=== PATIENT | female | born 1995 | race Caucasian/White ===

== ENCOUNTER 2018-03-03 01:12 | Emergency (ER) | payer OTHER ==
[2018-03-03] MEDS ORDERED: IBUPROFEN 600 MG TAB PO STA (01:43)
--- NOTE | 2018-03-03 01:47 | ED ---
ENT HPI - General Chief complaint: ENT Stated complaint: Sore throat Time Seen by Provider: 03/03/18 01:37 Source: patient, RN notes reviewed Mode of arrival: ambulatory Limitations: no limitations - History of Present Illness Initial comments: This is a 22-year-old female who presents to the emergency department with chief complaint of sore throat. Patient states she developed scratchiness in her throat yesterday and has developed progressive worsening of pain. She states that she is prone to tonsillitis. At this time, she also admits to runny nose and a nonproductive cough. She states that this evening she woke up and felt like she had difficulty breathing and thought that her tonsils were closing. Denies any fevers or chills, abdominal pain, nausea or vomiting, diarrhea or constipation. - Related Data Home Medications Medication Instructions Recorded Confirmed No Known Home Medications [No 03/03/18 03/03/18 Known Home Medications] Allergies Allergy/AdvReac Type Severity Reaction Status Date / Time Sulfa (Sulfonamide Allergy Itching Verified 03/03/18 01:19 Antibiotics) Review of Systems ROS Statement: Those systems with pertinent positive or pertinent negative responses have been documented in the HPI. ROS Other: All systems not noted in ROS Statement are negative. Past Medical History Past Medical History: Asthma History of Any Multi-Drug Resistant Organisms: None Reported Past Surgical History: Ear Surgery Past Psychological History: ADD/ADHD Smoking Status: Current every day smoker Past Alcohol Use History: Occasional Past Drug Use History: None Reported General Exam - General Exam Comments Initial Comments: General: Awake and alert, well-developed; in no apparent distress. Does not appear acutely ill. HEENT: Head atraumatic, normocephalic. Pupils are equal, round and reactive to light. Extraocular movements intact. Oropharynx moist with mild erythema. No tonsillar enlargement or exudates bilaterally. Neck: Supple. Normal ROM. No tender lymphadenopathy. Cardiovascular: Regular rate and rhythm. No murmurs, rubs or gallops. Chest symmetrical. Respiratory: Lungs clear to auscultation bilaterally. No wheezes, rales or rhonchi. Normal respiratory effort with no use of accessory muscles. Musculoskeletal: Normal ROM, no tenderness bilateral upper and lower extremities. Ambulating normally. Skin: [place], warm and dry without rashes or lesions. Neurological: Alert and oriented x3. CN II-XII grossly intact. Speech is fluent and answers are appropriate. No focal neuro deficits. Psychiatric: Normal mood and affect. No overt signs of depression or anxiety noted. Limitations: no limitations Course Vital Signs 03/03/18 01:15 Temperature 98.9 F Pulse Rate 91 Respiratory 17 Rate Blood Pressure 137/64 O2 Sat by Pulse 100 Oximetry Medical Decision Making - Medical Decision Making This is a 22-year-old female who presents to the emergency department with chief complaint of sore throat. Patient states that she is prone to tonsillitis and is worried that her tonsils are swollen. On presentation to the emergency department, patient's vital signs were stable and she was afebrile. On physical examination, oropharynx is mildly erythematous and and no tonsillar enlargement or exudates are noted. Rapid strep was negative. Patient also has been experiencing a nonproductive cough and runny nose. Denies any fevers or chills. Likely suffering from a viral upper respiratory infection. She will be discharged home at this time. She is in no acute distress. Recommended following up with her primary care provider. Return parameters were discussed. She is in agreement and voices understanding. All questions answered. - Lab Data Lab Results 03/03/18 Range/Units 01:37 Group A Strep Rapid Negative (Negative) Disposition Clinical Impression: Upper respiratory infection Disposition: HOME SELF-CARE Condition: Good Instructions: Upper Respiratory Infection (ED) Additional Instructions: Please follow up with primary care provider within 1-2 days. Return to emergency department if symptoms should worsen or any concerns arise. Is patient prescribed a controlled substance at d/c from ED?: No Referrals: Robel Clark DO [Primary Care Provider] - 1-2 days Time of Disposition: 02:44
[2018-03-03 03:02] VITALS: BP 110/59; PULSE 75; RESP 20; TEMP 98.1
== END 2018-03-03 03:04 | disposition home or self-care (01) ==
LOC: EC 01:12
DX: J06.9 Acute upper respiratory infection, unspecified (principal); F17.200 Nicotine dependence, unspecified, uncomplicated; Z88.2 Allergy status to sulfonamides
CPT/HCPCS: 87081; 87430; 99283

== ENCOUNTER → 2018-05-11 | Outpatient (CLI) | payer OTHER ==
[2018-05-11 15:18] LABS: Glucose 82 mg/dL (74-99)
--- NOTE | 2018-05-11 15:33 | US ---
EXAMINATION TYPE: Transabdominal DATE OF EXAM: 01/19/18 COMPARISON: NONE CLINICAL HISTORY: Confirm Dates Z36. EXAM PERFORMED: Transabdominal (TA) EXAM MEASUREMENTS: GESTATIONAL AGE / DATING Physician Established: Not yet established Dates by LMP: (11 weeks/1 days) EDC: 11/29/2018 Dates by First Scan: No previous this is first scan Dates by Current Scan for: (11 weeks/4 days) EDC: 11/26/2018 MATERNAL ANATOMY Uterus: 14.3 x 5.6 x 8.9 cm Right Ovary: 4.5 x 1.5 x 2.3 cm Left Ovary: 3.4 x 1.8 x 1.8 cm Post CDS / Adnexa: wnl Presence of free fluid: No Presence of corpus luteal cyst: No Presence of subchorionic bleed: Yes, 0.7 x 0.5 x 0.5 cm to the left of the gestational sac GESTATION / SURVEY CRL: 4.7 cm (11 weeks/4 days) Yolk Sac (normal less than 6mm): 0.5 cm Heart Rate: 168 bpm Rhythm: Normal IUP: Live IUP Nuchal Translucency 10-14wks (normal less than 3mm): 0.09 cm Date of LMP: 02/22/2018 Live IUP, measurements consistent with dates. Amnion and chorion have not yet entirely fused. IMPRESSION: Single live intrauterine with a calculated sonographic age of 11 weeks and 4 days and estim ated date of delivery of 11/26/2018, concordant with menstrual age. There is a very small 0.7 cm subcho rionic hemorrhage.
[2018-05-11 15:49] LABS: HCT 36.9 % (34.0-46.0); HGB 12.8 gm/dL (11.4-16.0); MCH 30.6 pg (25.0-35.0); MCHC 34.7 g/dL (31.0-37.0); MCV 88.2 fL (80.0-100.0); Mean Platelet Volume 7.9; Platelet Count 191 k/uL (150-450); RBC 4.18 m/uL (3.80-5.40); RDW 12.9 % (11.5-15.5); WBC 6.9 k/uL (3.8-10.6)
[2018-05-11 19:46] LABS: HIV AB P24 Non-Reactive (Non-Reactive); HIV P24 AG Non-Reactive (Non-Reactive)
[2018-05-12 05:35] LABS: Toxoplasma Antibody (IgG) <3.0 IU/mL (<7.2); Toxoplasma Antibody (IgM) <3.0 AU/mL (<8.0)
== END | disposition home or self-care (01) ==
LOC: RADUSWWP 14:10
PROVIDERS: ATTEND Obstetrics & Gynecology
DX: Z36.0 Encounter for antenatal screening for chromosomal anomalies (principal); O26.811 Pregnancy related exhaustion and fatigue, first trimester; O20.8 Other hemorrhage in early pregnancy; Z3A.11 11 weeks gestation of pregnancy
CPT/HCPCS: 36415; 76801; 76813; 82565; 82947; 85027; 86762; 86777; 86778; 86780; 86850; 86900; 86901; 87340; 87390

== ENCOUNTER 2018-08-02 07:13 | Observation (INO) | payer OTHER ==
[2018-08-02 08:06] LABS: Amorphous Sediment,Urine Occasional /hpf; Appearance,Urine Cloudy (Clear); Bacteria,Urine Occasional /hpf; Bilirubin,Urine Negative (Negative); Blood,Urine Moderate (Negative); Color,Urine Yellow; Glucose,Urine (UA) Negative (Negative); Ketones,Urine Negative (Negative); Leukocyte Esterase,Urine Negative (Negative); Mucus,Urine Rare /hpf; Nitrite,Urine Negative (Negative); PH, Urine 6.5 (5.0-8.0); Protein,Urine Trace (Negative); RBC,Urine >182 /hpf (0-5); Specific Gravity,Urine 1.015 (1.001-1.035); Squamous Epithelial Cell,Urine 11 /hpf (0-4); Urobilinogen,Urine <2.0 mg/dL (<2.0); WBC,Urine 8 /hpf (0-5)
--- NOTE | 2018-08-02 08:36 | US ---
EXAMINATION TYPE: US renals and bladder DATE OF EXAM: 08/02/2018 COMPARISON: NONE CLINICAL HISTORY: 23-year-old female rule out kidney stone.. Pt having left flank pain, approx. 23 we eks TECHNIQUE: Multiple sonographic images of the kidneys and bladder are obtained. FINDINGS: EXAM MEASUREMENTS: Right Kidney: 10.5 x 5.5 x 5.0 cm Left Kidney: 11.7 x 5.8 x 5.9 cm Plant Protection Superintendent notes:Pt scanned in upright position Right Kidney: Appeared wnl Left Kidney: There is mild pelvicaliectasis. Bladder: Unable to visualize, pt unable to lie down IMPRESSION: Mild pelvicaliectasis on the left. Bladder and ureteral jets could not be assessed as the patient was unable to lie down.
[2018-08-02] MEDS: BUTORPHANOL 1 MG/ML 1 ML VIAL IV PRN ×5 (08:58→18:38)
[2018-08-02] MEDS: ONDANSETRON 4 MG/2 ML VIAL IVP PRN ×2 (09:02→15:11)
[2018-08-02] MEDS: LACTATED RINGERS 1,000 ML IV SCH ×7 (09:04→21:51)
[2018-08-02 09:12] LABS: ALT 38 U/L (9-52); AST 30 U/L (14-36); Albumin 3.3 g/dL (3.5-5.0); Alkaline Phosphatase 63 U/L (38-126); Anion Gap 9 mmol/L; Blood Urea Nitrogen 10 mg/dL (7-17); Calcium 8.5 mg/dL (8.4-10.2); Carbon Dioxide 19 mmol/L (22-30); Chloride 109 mmol/L (98-107); Glucose 100 mg/dL (74-99); Potassium 3.7 mmol/L (3.5-5.1); Sodium 137 mmol/L (137-145); Total Bilirubin 0.3 mg/dL (0.2-1.3); Total Protein 6.1 g/dL (6.3-8.2)
[2018-08-02 09:41] LABS: Basophils % (A) 0 %; Eosinophils # (A) 0.3 k/uL (0-0.7); Eosinophils % (A) 3 %; HCT 34.8 % (34.0-46.0); HGB 12.1 gm/dL (11.4-16.0); Lymphocytes # (A) 1.3 k/uL (1.0-4.8); Lymphocytes % (A) 14 %; MCH 30.6 pg (25.0-35.0); MCHC 34.8 g/dL (31.0-37.0); MCV 88.1 fL (80.0-100.0); Mean Platelet Volume 7.8; Monocytes # (A) 0.5 k/uL (0-1.0); Monocytes % (A) 5 %; Neutrophils # (A) 7.2 k/uL (1.3-7.7); Neutrophils % (A) 76 %; Platelet Count 158 k/uL (150-450); RBC 3.95 m/uL (3.80-5.40); RDW 12.4 % (11.5-15.5); WBC 9.4 k/uL (3.8-10.6)
[2018-08-02 10:33] VITALS: BMI 35.5
--- NOTE | 2018-08-02 11:54 | US ---
EXAMINATION TYPE: US OB >= 14 wk fetus DATE OF EXAM: 08/02/2018 COMPARISON: 05/11/2018 CLINICAL HISTORY: 23-year-old female with Pain TECHNIQUE: Transabdominal (TA) GESTATIONAL AGE / DATING Physician Established: (23 weeks/0 days) EDC: 11/29/2018 Dates by Current Scan: (23 weeks/0 days) EDC: 11/29/2018 . 3 days more growth as compared to 05/11/2018. SURVEY IUP: Single PLACENTA: Anterior PREVIA: No Previa ABIMAEL: 18.7 cm Normal CERVICAL LENGTH (transabdominal: norm > 3.0cm): 4.0 cm BIOMETRY PRESENTATION: Breech BPD: 5.8 cm 23 weeks / 5 days HC: 21.0 cm 23 weeks / 0 days AC: 18.3 cm 23 weeks / 1 days FL: 4.1 cm 23 weeks / 2 days ESTIMATED WEIGHT IN GRAMS: 570.3 grams ESTIMATED WEIGHT IN LBS/OZ: 1 lbs. 4 oz. WEIGHT PERCENTAGE BASED ON ESTABLISHED DATES: 51.5% HC/AC: 1.2 Normal FL/AC: 22.3 Normal HEART RATE: 132 bpm RHYTHM: Normal Single live IUP measuring 23 weeks 0 days IMPRESSION: 1. Single live anterior with established gestational age of 23 weeks 0 days by LMP. Current ultrasound biometry is now exactly concordant with 3 days more growth than expected from 05/11/2018. 2. Complete survey generally performed between 18-20 weeks. Note that this study was not perfor med as a survey.
--- NOTE | 2018-08-02 13:16 | P.HPOB ---
History of Present Illness H&P Date: 08/02/18 Chief Complaint: Left flank pain This patient is a pleasant 23-year-old 1 para 0 female estimated date of confinement 11/29/2018 estimated gestational age 23-1/2 weeks who presented to labor and delivery this morning with complaints of sudden onset of left- sided flank pain that radiated to her groin. Patient's care has been uncomplicated to this point. She denies fever chills. She is having some nausea and vomiting. She denies any vaginal bleeding or leaking of fluid. She has had movement. Review of Systems Constitutional: Reports as per HPI Gastrointestinal: Reports nausea, Reports vomiting Genitourinary: Reports Menstruation: Reports amenorrhea Past Medical History Past Medical History: Asthma History of Any Multi-Drug Resistant Organisms: None Reported Past Surgical History: Ear Surgery Past Anesthesia/Blood Transfusion Reactions: No Reported Reaction Past Psychological History: ADD/ADHD Smoking Status: Former smoker Past Alcohol Use History: Occasional Past Drug Use History: None Reported - Past Family History Mother History Unknown: Yes Family Medical History: No Reported History Medications and Allergies Home Medications Medication Instructions Recorded Confirmed Type No Known Home Medications 03/03/18 08/02/18 History Allergies Allergy/AdvReac Type Severity Reaction Status Date / Time Sulfa (Sulfonamide Allergy Itching Verified 08/02/18 07:18 Antibiotics) Exam Vital Signs Temp Pulse Resp BP Pulse Ox 08/02/18 10:01 96.4 F L 73 16 133/79 100 08/02/18 09:49 69 16 129/64 100 08/02/18 08:10 97.8 F 69 18 129/64 99 Intake and Output 08/01/18 08/02/18 08/02/18 22:59 06:59 14:59 Other: Voiding Method Toilet Weight 85.275 kg - OBG Physical Exam Abdomen: bowel sounds normal, no diffuse tenderness, no bruit present, no guarding noted, no hepatomegaly, no splenomegaly, no mass Vulva: both: normal Vagina: normal moisture, no discharge Cervix: no lesion, no discharge Uterus: enlarged Results blood work shows she is A negative, rubella immune, RPR nonreactive, hepatitis B negative, HIV is nonreactive, ultrasounds shows normal anatomy. Result Diagrams: 08/02/18 08:37 08/02/18 08:37 Abnormal Lab Results - Last 24 Hours (Table) 08/02/18 08/02/18 Range/Units 07:50 08:37 Chloride 109 H (98-107) mmol/L Carbon Dioxide 19 L (22-30) mmol/L Creatinine 0.47 L (0.52-1.04) mg/dL Glucose 100 H (74-99) mg/dL Total Protein 6.1 L (6.3-8.2) g/dL Albumin 3.3 L (3.5-5.0) g/dL Urine Appearance Cloudy H (Clear) Urine Protein Trace H (Negative) Urine Blood Moderate H (Negative) Urine RBC >182 H (0-5) /hpf Urine WBC 8 H (0-5) /hpf Ur Squamous Epith Cells 11 H (0-4) /hpf Amorphous Sediment Occasional H (None) /hpf Urine Bacteria Occasional H (None) /hpf Urine Mucus Rare H (None) /hpf Assessment and Plan Assessment: This is a pleasant 23-year-old 1 para 0 female 23-1/2 weeks gestation with sudden onset of left-sided flank pain. Urinalysis shows hematuria without evidence of infection. Renal ultrasound shows some hydronephrosis on the left which is mild and no evidence of a kidney stone at this time. Kvng ultrasound was normal. CBC is normal. My impression this patient most likely has a renal calculi of the left side. There is no evidence of labor or placental abruption. Plan at this time is to admit this patient for IV hydration, observation, IV pain control and we will screen her urine. I discussed this plan in detail with the patient and her partner and she understands. (1) Acute flank pain Current Visit: Yes Status: Acute Code(s): R10.9 - UNSPECIFIED ABDOMINAL PAIN SNOMED Code(s): 057920125 (2) Second trimester Current Visit: Yes Status: Acute Code(s): Z34.92 - ENCNTR FOR SUPRVSN OF NORMAL PREG, UNSP, SECOND TRIMESTER SNOMED Code(s): 77040422
[2018-08-03 00:06] VITALS: RESP 16
[2018-08-03] MEDS: LACTATED RINGERS 1,000 ML IV SCH (04:16)
--- NOTE | 2018-08-03 06:08 | P.PN ---
Progress Note - Text Progress Note Date: 08/03/18 Hospital day #2. Patient is resting without complaints and her pain suddenly disappeared last evening. Vital signs are stable and she is afebrile. Patient' s having no further nausea and vomiting. I impression this is a kidney stones patient most likely past. Plan today is to advance to regular diet discharge home if still doing well.
--- NOTE | 2018-08-03 06:11 | P.DS ---
Providers Date of admission: 08/02/18 10:04 Expected date of discharge: 08/03/18 Attending physician: Tyree Singh Primary care physician: Stated None - Discharge Diagnosis(es) (1) Acute flank pain Current Visit: Yes Status: Acute (2) Second trimester Current Visit: Yes Status: Acute Hospital Course: Please see dictated H&P for intimate details of this patient's admission. Brief summary pleasant 23-year-old 1 para 0 female at 23-1/2 weeks gestation admitted to labor and delivery with sudden left sided flank pain. Patient's urinalysis was consistent with a kidney stone. Patient was admitted and given IV hydration and pain control. Patient did have a complete obstetrical ultrasound blood work all of which were normal. Overnight patient' s pain went away suddenly and by morning patient was feeling well felt be stable for discharge home follow up with me in 1 day. Patient Condition at Discharge: Good Plan - Discharge Summary New Discharge Prescriptions: No Action No Known Home Medications Discharge Medication List No Known Home Medications 03/03/18 [History] Follow up Appointment(s)/Referral(s): Darren Flowers MD [STAFF PHYSICIAN] - 08/04/18 Patient Instructions/Handouts: Kidney Stones (DC) Activity/Diet/Wound Care/Special Instructions: Please drink copious amount of fluids and take Tylenol as needed for pain. Discharge Disposition: HOME SELF-CARE
[2018-08-03 08:06] VITALS: BP 97/48; PULSE 86; TEMP 98.6
== END 2018-08-03 08:30 | disposition home or self-care (01) ==
LOC: FBPOP 07:13 → 4FBP 10:04
PROVIDERS: ADMIT Obstetrics & Gynecology; ATTEND Obstetrics & Gynecology
DX: O26.892 Other specified pregnancy related conditions, second trimester (principal); R10.9 Unspecified abdominal pain; Z3A.23 23 weeks gestation of pregnancy; Z87.891 Personal history of nicotine dependence; Z86.59 Personal history of other mental and behavioral disorders; Z87.09 Personal history of other diseases of the respiratory system; Z88.2 Allergy status to sulfonamides
CPT/HCPCS: 96376; 96361; 96374; 96375; 80053; 85025; 81001; 76805; 76770; G0378 ×2; G0463; J0595; J2405; 96360; 99213; 99214

== ENCOUNTER 2018-11-17 12:45 | Emergency (ER) | payer OTHER ==
[2018-11-17 12:57] VITALS: BP 106/68; PULSE 87; RESP 16; TEMP 98.2
--- NOTE | 2018-11-17 13:19 | ED ---
General Adult HPI - General Chief complaint: Wound/Laceration Stated complaint: Lt thumb lac Time Seen by Provider: 11/17/18 13:01 Source: patient, RN notes reviewed Mode of arrival: ambulatory Limitations: no limitations - History of Present Illness Initial comments: Patient is a 23-year-old female who presents the emergency department with complaint of left thumb laceration that happened about 30 minutes ago. She reports she was opening something with a knife when it slipped and cut her thumb. She reports she is up-to-date on her tetanus vaccination. Patient denies any recent fever, chills, shortness of breath, chest pain, back pain, abdominal pain, nausea or vomiting, numbness or tingling, headaches or visual changes, or any other complaints. - Related Data Home Medications Medication Instructions Recorded Confirmed No Known Home Medications 03/03/18 08/02/18 Allergies Allergy/AdvReac Type Severity Reaction Status Date / Time Sulfa (Sulfonamide Allergy Itching Verified 11/17/18 12:57 Antibiotics) Review of Systems ROS Statement: Those systems with pertinent positive or pertinent negative responses have been documented in the HPI. ROS Other: All systems not noted in ROS Statement are negative. Past Medical History Past Medical History: Asthma History of Any Multi-Drug Resistant Organisms: None Reported Past Surgical History: Ear Surgery Past Anesthesia/Blood Transfusion Reactions: No Reported Reaction Past Psychological History: ADD/ADHD Smoking Status: Former smoker Past Alcohol Use History: Occasional Past Drug Use History: None Reported - Past Family History Mother History Unknown: Yes Family Medical History: No Reported History General Exam Limitations: no limitations General appearance: alert, in no apparent distress Head exam: Present: atraumatic, normocephalic Eye exam: Present: normal appearance Respiratory exam: Present: normal lung sounds bilaterally. Absent: wheezes, rales, rhonchi Cardiovascular Exam: Present: regular rate, normal rhythm Extremities exam: Present: full ROM, normal capillary refill, other (Laceration to distal phalanx left thumb. Sensation intact. Able to maintain finger extension against resistance.) Neurological exam: Present: alert, oriented X3 Psychiatric exam: Present: normal affect, normal mood Course Vital Signs 11/17/18 12:55 Temperature 98.2 F Pulse Rate 87 Respiratory 16 Rate Blood Pressure 106/68 O2 Sat by Pulse 98 Oximetry Procedures - Laceration Laceration #1 Consent Obtained: verbal consent Indication: laceration Site: hand Size (cm): 2 Description: irregular Depth: simple, single layer Sedation/Analgesia: none Anesthetic Used: lidocaine 1%, without epi Anesthesia Technique: local infiltration Amount (mls): 2 Pre-repair: wound explored, irrigated extensively Type of Sutures: nylon Size of Sutures: 4-0 Number of Sutures: 4 Technique: simple, interrupted Patient Tolerated Procedure: well, no complications Medical Decision Making - Medical Decision Making Laceration repaired. Case discussed in detail with attending physician Dr. Lagunas. Disposition Clinical Impression: Laceration Disposition: HOME SELF-CARE Condition: Good Instructions (If sedation given, give patient instructions): Care For Your Stitches (ED) Additional Instructions: Follow-up with your PCP in 1-2 days. Return to the emergency department or follow-up with your PCP in 14 days for suture removal. Return to the emergency department if redness, swelling, drainage or fevers as these could indicate an infection. Is patient prescribed a controlled substance at d/c from ED?: No Referrals: Robel Clark DO [Primary Care Provider] - 1-2 days Time of Disposition: 14:25
[2018-11-17] MEDS ORDERED: LIDOCAINE 1% INJ 10MG/ML (20 ML MDV) SQ STA (13:20)
== END 2018-11-17 14:46 | disposition home or self-care (01) ==
LOC: EC 12:45
DX: S61.012A Laceration without foreign body of left thumb without damage to nail, initial encounter (principal); Z87.891 Personal history of nicotine dependence; Z88.2 Allergy status to sulfonamides; W26.0XXA Contact with knife, initial encounter; Y93.89 Activity, other specified
CPT/HCPCS: 99282; 12001; J2001

== ENCOUNTER 2018-11-25 05:33 | Inpatient (IN) | payer OTHER ==
[2018-11-18 15:43] VITALS: BMI 35.0
--- NOTE | 2018-11-24 06:48 | P.HPOB ---
History of Present Illness H&P Date: 11/24/18 Chief Complaint: macrosomia requesting section This patient is a pleasant 23-year-old 1 para 0 female estimated date of confinement 11/29/2018 estimated gestational age 39-3/7 weeks who presents to labor and delivery for primary section secondary to macrosomia. Patient's history is such that she has a family history of large babies and patient's and measuring large. Most recent ultrasound estimates weight at about 9-1/2-10 pounds. Patient I've discussed options for delivery and she is requested section at this time which I feel is appropriate. is otherwise been uncomplicated. Review of Systems Gastrointestinal: Reports heartburn Genitourinary: Reports Menstruation: Reports amenorrhea Past Medical History Past Medical History: Asthma Additional Past Medical History / Comment(s): STITCHES TO LEFT THUMB ON 11/17/18 History of Any Multi-Drug Resistant Organisms: None Reported Past Surgical History: Ear Surgery Additional Past Surgical History / Comment(s): TUBES IN EARS INFANT Past Anesthesia/Blood Transfusion Reactions: No Reported Reaction Past Psychological History: No Psychological Hx Reported Smoking Status: Former smoker Past Alcohol Use History: None Reported Past Drug Use History: None Reported - Past Family History Mother History Unknown: Yes Family Medical History: No Reported History Medications and Allergies Home Medications Medication Instructions Recorded Confirmed Type Folic Acid 1 mg PO DAILY 11/17/18 11/18/18 History Acetaminophen Tab [Tylenol Tab] 325 - 650 mg PO Q6H PRN 11/18/18 11/18/18 History Allergies Allergy/AdvReac Type Severity Reaction Status Date / Time Sulfa (Sulfonamide Allergy Itching Verified 11/18/18 15:39 Antibiotics) egg AdvReac Nausea Verified 11/18/18 15:39 Exam - OBG Physical Exam Abdomen: bowel sounds normal, no diffuse tenderness, no bruit present, no guarding noted, no hepatomegaly, no splenomegaly, no mass Vulva: both: normal Vagina: normal moisture, no discharge Cervix: no lesion (Cervix in the office was closed.), no discharge Uterus: enlarged (Fundal height measures large for dates.) Results blood work shows she is A-, rubella immune, RPR nonreactive, HIV nonreactive, hepatitis B negative, Glucola was normal, group B strep was negative, most recent ultrasound estimated weight at 9 lbs. 8 oz. Patient did receive RhoGAM at 28 weeks. Assessment and Plan Assessment: This is a pleasant 23-year-old 1 para 0 female 39-3/7 weeks gestation who presents to labor and delivery for primary section secondary to excessive macrosomia. Patient I have discussed the surgery and risks including risks of infection, bleeding, possible need bowel, bladder, vessels, and other organs. Also discussed risk of DVT and pulmonary embolism. All the patient's questions are answered and a written consent is obtained. Plan is primary low transverse section. (1) 39 weeks gestation of Status: Acute Code(s): Z3A.39 - 39 WEEKS GESTATION OF SNOMED Code( s): 63086914 (2) Excessive growth affecting management of mother Status: Acute Code(s): O36.60X0 - MATERNAL CARE FOR EXCESS GROWTH, UNSP TRIMESTER, UNSP SNOMED Code(s): 69738868 (3) Rh negative status during Status: Acute Code(s): O26.899 - OTH RELATED CONDITIONS, UNSPECIFIED TRIMESTER; Z67.91 - UNSPECIFIED BLOOD TYPE, RH NEGATIVE SNOMED Code(s): 129842949
[2018-11-25] MEDS ORDERED: LACTATED RINGERS 1,000 ML IV SCH (05:41)
[2018-11-25] MEDS ORDERED: CITRIC ACID-SODIUM CITRATE 15 ML CUP PO ONE (05:41)
[2018-11-25] MEDS ORDERED: LACTATED RINGERS 1,000 ML IV ONE (05:41)
[2018-11-25 06:17] LABS: Basophils % (A) 0 %; Eosinophils # (A) 0.1 k/uL (0-0.7); Eosinophils % (A) 1 %; HCT 33.9 % (34.0-46.0); HGB 11.3 gm/dL (11.4-16.0); Hypochromasia Slight; Lymphocytes # (A) 1.6 k/uL (1.0-4.8); Lymphocytes % (A) 22 %; MCH 26.1 pg (25.0-35.0); MCHC 33.3 g/dL (31.0-37.0); MCV 78.4 fL (80.0-100.0); Mean Platelet Volume 9.5; Monocytes # (A) 0.6 k/uL (0-1.0); Monocytes % (A) 8 %; Neutrophils # (A) 5.1 k/uL (1.3-7.7); Neutrophils % (A) 67 %; Platelet Count 194 k/uL (150-450); Poikilocytosis Slight; RBC 4.31 m/uL (3.80-5.40); RDW 13.7 % (11.5-15.5); WBC 7.6 k/uL (3.8-10.6)
[2018-11-25] MEDS ORDERED: ceFAZolin IN SWFI 2 GM/20 ML SYRINGE IVP ONE (07:15)
[2018-11-25] MEDS ORDERED: KETOROLAC 30 MG/ML 1 ML VIAL ONE (07:50)
[2018-11-25] MEDS ORDERED: OXYTOCIN 10 UNIT/ML 1 ML VIAL ONE (07:50)
[2018-11-25] MEDS ORDERED: NALBUPHINE 10 MG/ML (1 ML AMP) ONE (07:50)
[2018-11-25] MEDS ORDERED: MORPHINE SULFATE (PF) 0.3 MG/0.3 ML SYR ONE (07:50)
[2018-11-25] MEDS ORDERED: ONDANSETRON 4 MG/2 ML VIAL ONE (07:50)
[2018-11-25] MEDS ORDERED: DEXAMETHASONE SOD PHOS (MDV) 100 MG/10 ML VIAL ONE (07:50)
--- NOTE | 2018-11-25 08:50 | P.OP ---
Date of Procedure: 11/25/18 Preoperative Diagnosis: #1: 39-3/7 week . #2: macrosomia. Postoperative Diagnosis: Same Procedure(s) Performed: Primary low transverse section Anesthesia: spinal Surgeon: Darren Flowers Adobe Cq Developer #1: Mindi Locke Estimated Blood Loss (ml): 800 Pathology: none sent Condition: stable Disposition: floor Indications for Procedure: Please see dictated H&P for intimate details of this patient's admission. Brief summary this is a pleasant 23-year-old 1 para 0 female 39-3/7 weeks who is admitted to labor and delivery for elective section secondary to suspected macrosomia. Patient I have discussed the surgery and risks including risks of infection, bleeding, possible injury bowel, bladder , vessels, and other organs. Patient also understands risk of DVT and pulmonary embolism. All the patient's questions are answered and a written consent is obtained. Operative Findings: This is a vigorous viable male infant Apgars 9 and 9 delivery time is 0812 hours. Infant was 9 lbs. 10 oz. and had a nuchal cord 1. Description of Procedure: This patient is taken to the operating room where she sat up and spinal anesthetic is administered without incident. She had a had a Lamas catheter placed to straight drain. With adequate level of anesthesia she has abdominal prep and drape. Scalpels and taken Pfannenstiel skin incision is then made. A second scalpel is taken down the fascia and the fascia scored with a knife. Fascial incision extended bilaterally using the Monsivais scissors. Fascia is then dissected sharply off the rectus muscles. Rectus muscles are and the peritoneum identified and entered sharply. Peritoneal incision extended superior and inferior without difficulty. Bladder blade is then placed. Bladder peritoneum was then taken down sharply with the Metzenbaum scissors. Scalpels and taken a low transverse uterine incision is made. Using a hemostat I into the uterine cavity bluntly. Uterine incision is extended bluntly there is loss of a large amount of clear fluid. The infant's head is then guided through the incision with fundal pressure delivered. Mouth and nares are bulb suctioned. There is a nuchal cord 1 which is reduced. Then delivery anterior posterior rest this infant's body. This is a vigorous viable male infant Apgars are 9 and 9 delivery time was 0812 hours. After delivery of the infant the umbilical cord is doubly clamped and cut appears to be trivascular. The uterus is then externalized and uterine incision demarcated with Moreno clamps. Uterine incision then closed using 0 Vicryl running locked fashion 2 layers. Excellent hemostasis is noted. Bladder peritoneum was then reapproximated using a 3-0 Vicryl. Excess fluid is removed from the abdomen and pelvis. Uterus tubes and ovaries appear normal for term gestation. Uterus placed back into the abdomen. The parietal peritoneum was identified and closed using 0 Vicryl running fashion. The rectus muscles are reapproximated in 0 Vicryl interrupted fashion. The fascia is then closed using 0 PDS in a running fashion. Fascial incision is intact and hemostatic. Subcutaneous tissues and closed using a 3-0 Vicryl. Skin is and closed using annie. All counts are correct 3. There are no complications. Infant and mother stable in birthing room.
[2018-11-25] MEDS ORDERED: KETOROLAC 30 MG/ML 1 ML VIAL IVP PRN (08:51)
[2018-11-25] MEDS ORDERED: METOCLOPRAMIDE 5 MG/ML 2 ML VIAL IVP PRN (08:51)
[2018-11-25] MEDS ORDERED: SIMETHICONE 80 MG CHEWABLE PO PRN (08:51)
[2018-11-25] MEDS ORDERED: ZOLPIDEM 5 MG TAB PO PRN (08:51)
[2018-11-25] MEDS ORDERED: ACETAMINOPHEN TAB 325 MG TAB PO PRN (08:51)
[2018-11-25] MEDS ORDERED: LANOLIN CREAM 5 GM TUBE TOPICAL PRN (08:51)
[2018-11-25] MEDS ORDERED: Rhogam IMMUNE GLOBULIN 1,500 UNIT/1 ML IM ONE (08:51)
[2018-11-25] MEDS ORDERED: NALOXONE 0.4 MG/ML 1 ML VIAL IV PRN (08:51)
[2018-11-25] MEDS ORDERED: diphenhydrAMINE 50 MG/ML 1 ML VIAL IVP PRN (08:51)
[2018-11-25] MEDS ORDERED: OXYTOCIN 20 UNITS/1000 ML NS 1,000 ML IV SCH (08:51)
[2018-11-25] MEDS ORDERED: ONDANSETRON 4 MG/2 ML VIAL IVP PRN (08:51)
[2018-11-25] MEDS ORDERED: diphenhydrAMINE 25 MG CAP PO PRN (08:51)
[2018-11-25 10:57] VITALS: RESP 16
[2018-11-25] MEDS: LACTATED RINGERS 1,000 ML IV SCH ×3 (12:29→22:24)
[2018-11-25] MEDS ORDERED: DIPH,PERTUS(ACELL)TETVAC-LF 0.5 ML VIAL IM ONE (14:28)
[2018-11-25] MEDS: SENNOSIDES-DOCUSATE SODIUM 1 EACH TAB PO SCH (21:25)
[2018-11-26] MEDS: IBUPROFEN 600 MG TAB PO PRN ×4 (00:58→21:09)
--- NOTE | 2018-11-26 06:54 | P.PNOBGPC ---
Subjective - Subjective Patient reports: Reports appetite normal, Reports voiding normally, Reports pain well controlled, Reports ambulating normally : doing well Objective - Vital Signs Latest vital signs: Vital Signs Temp Pulse Resp BP Pulse Ox 11/26/18 04:00 97.8 F 67 16 104/71 100 11/26/18 00:00 97.6 F 66 16 100/49 99 11/25/18 20:00 98.4 F 87 16 107/69 100 11/25/18 15:49 75 106/63 11/25/18 15:42 98.2 F 16 11/25/18 12:00 97.2 F L 71 16 109/55 97 11/25/18 10:40 96.8 F L 71 16 112/57 97 11/25/18 10:14 97.1 F L 84 17 106/56 98 11/25/18 10:12 69 18 122/65 97 11/25/18 09:25 75 18 114/59 97 11/25/18 09:10 96.6 F L 80 18 112/57 97 11/25/18 08:55 77 18 113/59 96 11/25/18 08:40 97.0 F L 81 18 113/57 97 Intake and Output 11/25/18 11/25/18 11/26/18 14:59 22:59 06:59 Intake Total 331 800 Output Total 650 700 800 Balance -319 100 -800 Intake: Intake, IV Titration 61 800 Amount Lactated Ringers 1,000 ml 61 800 @ 125 mls/hr IV .Q8H [facility] Rx#:[id number] Oral 270 Output: Urine 650 700 800 Other: Voiding Method Indwelling Catheter # Voids 1 1 - Exam Lungs: bilateral: normal Chest: Normal S1, Normal S2 Extremities: Present: normal Abdomen: Present: normal appearance, soft. Absent: distention, tenderness Incision: Present: normal, dry, intact Uterus: Present: normal, firm Assessment and Plan Assessment: Post operative day #1. Patient is resting without complaints. Vital signs are stable and she is afebrile. CBC is pending. She is ambulating and urinating without difficulty and tolerating regular diet. Incision is intact and dry. Plan today is to check a CBC, encourage more ambulation, allow the patient to shower, and continue routine postoperative care. (1) 39 weeks gestation of Current Visit: No Status: Acute Code(s): Z3A.39 - 39 WEEKS GESTATION OF SNOMED Code(s): 06855150 (2) Excessive growth affecting management of mother Current Visit: No Status: Acute Code(s): O36.60X0 - MATERNAL CARE FOR EXCESS GROWTH, UNSP TRIMESTER, UNSP SNOMED Code(s): 49057160 (3) Rh negative status during Current Visit: No Status: Acute Code(s): O26.899 - OTH RELATED CONDITIONS, UNSPECIFIED TRIMESTER; Z67.91 - UNSPECIFIED BLOOD TYPE, RH NEGATIVE SNOMED Code(s): 540924985
[2018-11-26 07:27] LABS: Basophils % (A) 0 %; Eosinophils # (A) 0.1 k/uL (0-0.7); Eosinophils % (A) 1 %; HCT 28.4 % (34.0-46.0); Hypochromasia Moderate; Lymphocytes # (A) 1.8 k/uL (1.0-4.8); Lymphocytes % (A) 21 %; MCH 26.2 pg (25.0-35.0); MCHC 33.1 g/dL (31.0-37.0); MCV 79.2 fL (80.0-100.0); Mean Platelet Volume 9.1; Monocytes # (A) 0.7 k/uL (0-1.0); Monocytes % (A) 8 %; Neutrophils # (A) 5.8 k/uL (1.3-7.7); Neutrophils % (A) 68 %; Platelet Count 157 k/uL (150-450); RBC 3.58 m/uL (3.80-5.40); RDW 13.7 % (11.5-15.5); WBC 8.5 k/uL (3.8-10.6)
[2018-11-26 07:29] LABS: HGB 9.4 gm/dL (11.4-16.0)
[2018-11-26] MEDS: SENNOSIDES-DOCUSATE SODIUM 1 EACH TAB PO SCH ×2 (08:29→22:32)
[2018-11-26] MEDS: HYDROcodone/APAP 5-325MG 1 EACH TAB PO PRN (15:36)
--- NOTE | 2018-11-26 16:57 | P.PN ---
Progress Note - Text Progress Note Date: 11/26/18 23 yo female s/p c section with duramorph spinal. No motor/sensory deficits, ambulating. mild pruritis. doing well.
[2018-11-27] MEDS: SENNOSIDES-DOCUSATE SODIUM 1 EACH TAB PO SCH (07:20)
[2018-11-27] MEDS: HYDROcodone/APAP 5-325MG 1 EACH TAB PO PRN ×2 (07:21→13:37)
[2018-11-27] MEDS: IBUPROFEN 600 MG TAB PO PRN (10:37)
--- NOTE | 2018-11-27 11:27 | P.DS ---
Providers Date of admission: 11/25/18 05:33 Expected date of discharge: 11/27/18 Attending physician: Darren Flowers Primary care physician: Robel Clark - Discharge Diagnosis(es) (1) Status post primary low transverse section Current Visit: Yes Status: Acute Hospital Course: Pt presented for primary low transverse . She underwent this procedure without complication. SHe will be discharged home PPD #2 in stable condition to follow up with DR Flowers in 1 week. Plan - Discharge Summary Discharge Rx Participant: Yes New Discharge Prescriptions: New HYDROcodone/APAP 5-325MG [Ro[place] 5-325] 2 each PO Q4HR PRN #36 tab PRN Reason: Moderate Pain Ibuprofen [Motrin] 600 mg PO Q6HR PRN #40 tab PRN Reason: Mild Pain Or Fever >= 100.5 No Action Folic Acid 1 mg PO DAILY Acetaminophen Tab [Tylenol Tab] 325 - 650 mg PO Q6H PRN PRN Reason: Pain Discharge Medication List Folic Acid 1 mg PO DAILY 11/17/18 [History] Acetaminophen Tab [Tylenol Tab] 325 - 650 mg PO Q6H PRN 11/18/18 [History] HYDROcodone/APAP 5-325MG [Roosevelt 5-325] 2 each PO Q4HR PRN #36 tab 11/26/18 [Rx] Ibuprofen [Motrin] 600 mg PO Q6HR PRN #40 tab 11/26/18 [Rx] Follow up Appointment(s)/Referral(s): Darren Flowers MD [STAFF PHYSICIAN] - 1 Week (Please see me in 6 weeks for check as well.) Patient Instructions/Handouts: (DC) Activity/Diet/Wound Care/Special Instructions: No heavy lifting or strenuous activities for 6 weeks. No intercourse or anything per vagina for 6 weeks. Please call if any fever, chills, excessive vaginal bleeding, and/or abdominal pain. Discharge Disposition: HOME SELF-CARE
[2018-11-27 12:03] VITALS: BP 116/62; PULSE 81; TEMP 97.5
== END 2018-11-27 16:30 | disposition home or self-care (01) | DRG 788 ==
LOC: 4FBP 05:33
PROVIDERS: ADMIT Obstetrics & Gynecology; ATTEND Obstetrics & Gynecology
PROC: 10D00Z1 Extraction of Products of Conception, Low, Open Approach (ICD-10-PCS; principal; 2018-11-25 08:00)
DX: O36.63X0 Maternal care for excessive fetal growth, third trimester, not applicable or unspecified (principal); O69.81X0 Labor and delivery complicated by cord around neck, without compression, not applicable or unspecified; O26.893 Other specified pregnancy related conditions, third trimester; O99.62 Diseases of the digestive system complicating childbirth; O99.89 Other specified diseases and conditions complicating pregnancy, childbirth and the puerperium; M40.50 Lordosis, unspecified, site unspecified; R12 Heartburn; Z37.0 Single live birth; Z3A.39 39 weeks gestation of pregnancy; Z67.91 Unspecified blood type, Rh negative; Z87.891 Personal history of nicotine dependence; Z87.09 Personal history of other diseases of the respiratory system; Z88.2 Allergy status to sulfonamides; Z91.012 Allergy to eggs
CPT/HCPCS: 85025; 85461; 86850; 86900; 86901; 90715

== ENCOUNTER → 2020-06-04 | Outpatient (CLI) | payer OTHER ==
--- NOTE | 2020-06-04 22:29 | US ---
EXAMINATION TYPE: Ultrasound OB <= 14 week fetus DATE OF EXAM: 06/04/2020 3:07 PM COMPARISON: NONE CLINICAL HISTORY: 25-year-old female Z36 confirm dates. early ob, unknown dates EXAM PERFORMED: OBTA FINDINGS: EXAM MEASUREMENTS: GESTATIONAL AGE / DATING Physician Established: Not yet established Dates by LMP: (11 weeks/1 days) EDC: 12/23/2020 Dates by First Scan: No previous, this is first scan Dates by Current Scan for: (11 weeks/1 days) EDC: 12/23/2020 MATERNAL ANATOMY Uterus: 17.8 x 9.1 x 7.5cm Right Ovary: 2.8 x 2.5 x 2.8cm Left Ovary: not seen Post CDS / Adnexa: wnl Presence of free fluid: no Presence of corpus luteal cyst: not seen Presence of subchorionic bleed: no GESTATION / SURVEY CRL: 4.3 (11 weeks/1 days) MSD: wnl Yolk Sac (normal less than 6mm): not seen Heart Rate: 165 bpm Rhythm: Normal IUP: Viable IUP Date of LMP: 03/18/2020 IMPRESSION: 1. Single live intrauterine with estimated gestational age of 11 weeks 1 day by LMP. Curren t ultrasound biometry is exactly concordant. 2. The left ovary could not be visualized. 3. Complete survey recommended at 18-20 weeks.
== END | disposition home or self-care (01) ==
LOC: RADUSWWP 14:47
PROVIDERS: ATTEND Obstetrics & Gynecology
DX: Z36.9 Encounter for antenatal screening, unspecified (principal); Z3A.11 11 weeks gestation of pregnancy
CPT/HCPCS: 76801

== ENCOUNTER 2020-12-18 05:30 | Inpatient (IN) | payer OTHER ==
[2020-12-14 10:36] VITALS: BMI 45.3
--- NOTE | 2020-12-17 07:22 | P.HPOB ---
History of Present Illness H&P Date: 12/17/20 Chief Complaint: Repeat section This patient is a pleasant 25-year-old 2 para 1 female estimated date of confinement 12/23/2020 estimated gestational age 39-2/7 weeks who presents to labor and delivery for elective repeat section. Patient's has been uncomplicated with the exception of known macrosomia. Patient had a previous section for similar reasons as requested repeat at this time. Review of Systems Genitourinary: Reports Menstruation: Reports amenorrhea Past Medical History Past Medical History: Asthma Additional Past Medical History / Comment(s): STITCHES TO LEFT THUMB ON 11/17/18; kidney stones History of Any Multi-Drug Resistant Organisms: None Reported Past Surgical History: Section, Ear Surgery Additional Past Surgical History / Comment(s): TUBES IN EARS INFANT Past Anesthesia/Blood Transfusion Reactions: No Reported Reaction Past Psychological History: No Psychological Hx Reported Smoking Status: Former smoker Past Alcohol Use History: None Reported Past Drug Use History: None Reported - Past Family History Mother History Unknown: Yes Family Medical History: No Reported History Medications and Allergies Home Medications Medication Instructions Recorded Confirmed Type Inhaler 2 puff INHALATION DIRECTED PRN 12/14/20 History Multivitamins, Thera [Multivitamin 1 tab PO DAILY 12/14/20 12/14/20 History (formulary)] Allergies Allergy/AdvReac Type Severity Reaction Status Date / Time Sulfa (Sulfonamide Allergy Itching Verified 12/14/20 10:33 Antibiotics) Exam - OBG Physical Exam Abdomen: bowel sounds normal, no diffuse tenderness, no bruit present, no guarding noted, no hepatomegaly, no splenomegaly, no mass Vulva: both: normal Vagina: normal moisture, no discharge Cervix: no lesion, no discharge Uterus: enlarged (Fundal height is 45 cm) Results blood work shows she is A-, rubella immune, RPR nonreactive, hepatitis B negative, HIV is nonreactive, she received RhoGAM on October 01, group B strep was positive, Glucola was normal, most recent ultrasound showed the baby to be greater than 90th percentile. Assessment and Plan Assessment: This is a pleasant 25-year-old 2 para 1 female 39-2/7 weeks gestation admitted to labor and delivery for elective repeat section. Patient is known macrosomia. Plan is repeat low transverse section. I discussed the surgery and risks with the patient including risks of infection, bleeding, possible injury bowel, bladder, vessels, and/or other organs. All the patient's questions were answered and a written consent is obtained. (1) 39 weeks gestation of Status: Acute Code(s): Z3A.39 - 39 WEEKS GESTATION OF SNOMED Code(s): 28504028 (2) macrosomia Status: Acute Code(s): O36.60X0 - MATERNAL CARE FOR EXCESS GROWTH, UNSP TRIMESTER, UNSP SNOMED Code(s): 14331088 (3) Rh negative status during Status: Acute Code(s): O26.899 - OTH RELATED CONDITIONS, UNSPECIFIED TRIMESTER; Z67.91 - UNSPECIFIED BLOOD TYPE, RH NEGATIVE SNOMED Code(s): 869254221 (4) Previous delivery affecting Status: Acute Code(s): O34.219 - MATERNAL CARE FOR UNSP TYPE SCAR FROM PREVIOUS DEL SNOMED Code(s): 696368036
[2020-12-18] MEDS ORDERED: CITRIC ACID-SODIUM CITRATE 15 ML CUP PO ONE (05:48)
[2020-12-18] MEDS ORDERED: LACTATED RINGERS 1,000 ML IV ONE (05:48)
[2020-12-18] MEDS ORDERED: LACTATED RINGERS 1,000 ML IV SCH (05:48)
[2020-12-18 06:14] LABS: Basophils % (A) 0 %; Eosinophils # (A) 0.1 k/uL (0-0.7); Eosinophils % (A) 1 %; HCT 30.7 % (34.0-46.0); HGB 9.7 gm/dL (11.4-16.0); Hypochromasia Slight; Lymphocytes # (A) 2.1 k/uL (1.0-4.8); Lymphocytes % (A) 21 %; MCH 23.4 pg (25.0-35.0); MCHC 31.8 g/dL (31.0-37.0); MCV 73.6 fL (80.0-100.0); Mean Platelet Volume 7.3; Microcytosis Slight; Monocytes # (A) 0.7 k/uL (0-1.0); Monocytes % (A) 7 %; Neutrophils # (A) 6.8 k/uL (1.3-7.7); Neutrophils % (A) 69 %; Platelet Count 183 k/uL (150-450); Poikilocytosis Slight; RBC 4.17 m/uL (3.80-5.40); RDW 15.6 % (11.5-15.5)
[2020-12-18] MEDS ORDERED: MORPHINE SULFATE (PF) 0.3 MG/0.3 ML SYR ONE (07:51)
[2020-12-18] MEDS ORDERED: KETOROLAC 15 MG/ML 1 ML VIAL ONE (07:51)
[2020-12-18] MEDS ORDERED: ONDANSETRON 4 MG/2 ML VIAL ONE (07:51)
[2020-12-18] MEDS ORDERED: OXYTOCIN 10 UNIT/ML 1 ML VIAL ONE (07:51)
[2020-12-18] MEDS ORDERED: PHENYLEPHRINE-0.9% NACL SYG 1,000 MCG/10 ML SYRINGE ONE (07:51)
[2020-12-18] MEDS ORDERED: METOCLOPRAMIDE 5 MG/ML 2 ML VIAL IVP PRN (08:38)
[2020-12-18] MEDS ORDERED: NALOXONE 0.4 MG/ML 1 ML VIAL IV PRN (08:38)
[2020-12-18] MEDS ORDERED: ONDANSETRON 4 MG/2 ML VIAL IVP PRN (08:38)
[2020-12-18] MEDS ORDERED: diphenhydrAMINE 25 MG CAP PO PRN (08:38)
[2020-12-18] MEDS ORDERED: ZOLPIDEM 5 MG TAB PO PRN (08:38)
[2020-12-18] MEDS ORDERED: LANOLIN CREAM 5 GM TUBE TOPICAL PRN (08:38)
[2020-12-18] MEDS ORDERED: SIMETHICONE 80 MG CHEWABLE PO PRN (08:38)
[2020-12-18] MEDS ORDERED: diphenhydrAMINE 50 MG/ML 1 ML VIAL IVP PRN (08:38)
[2020-12-18] MEDS ORDERED: OXYTOCIN 30 UNITS/500 ML NS 30 UNIT in SALINE 1 500ML.BAG IV SCH (08:38)
[2020-12-18] MEDS ORDERED: ACETAMINOPHEN TAB 325 MG TAB PO PRN (08:38)
[2020-12-18] MEDS ORDERED: Rhogam IMMUNE GLOBULIN 1,500 UNIT/1 ML IM ONE (08:38)
--- NOTE | 2020-12-18 08:39 | P.OP ---
Date of Procedure: 12/18/20 Preoperative Diagnosis: #1: 39-2/7 week intrauterine . #2: Previous section desires repeat. #3: macrosomia Postoperative Diagnosis: Same Procedure(s) Performed: Repeat low transverse section Anesthesia: spinal Surgeon: Darren Flowers Wig Sales Consultant #1: Mindi Locke Estimated Blood Loss (ml): 600 Pathology: none sent Condition: stable Disposition: floor Indications for Procedure: Please see dictated H&P for intimate details of this patient's admission. Brief summary this is a pleasant 25-year-old 2 para 1 female 39-2/7 weeks gestation admitted to labor and delivery for elective repeat section. Patient understands this surgery and risks including risks of infection, bleeding, possible injury bowel, bladder, vessels, and/or other organs. She also understands risk of DVT and pulmonary embolism. All the patient's questions are answered written consent is obtained. Operative Findings: This is a vigorous viable male Apgars 9 and 9 delivery time is 0807 hrs. had a nuchal cord 1 and grossly appeared normal. Description of Procedure: This patient has a Lamas catheter placed to straight drain. She is subsequently taken to the operating room where she sat up and spinal anesthetic is administered without incident. With an adequate level of anesthesia, she has abdominal prep and drape. Scalpel is then taken and a Pfannenstiel incision is incised. A second scalpel is taken down the fascia and it is scored with the scalpel. Fascial incision extended bilaterally using the Monsivais scissors. Fascia is then dissected off the rectus muscles sharply. Rectus muscles are the peritoneum identified and sharply. Peritoneal incision extended superior and inferior without difficulty. Bladder blade is then placed. Bladder peritoneum was gently dissected off the lower uterine segment. Scalpels and taken a low transverse uterine incision is made. Using a hemostat I into the uterine cavity bluntly and there is loss of clear fluid. Incision is then extended bluntly and the infant's head is pushed through the incision with fundal pressure. Mouth and nares are bulb suctioned. There is a nuchal cord 1 which is easily reduced. Gentle fundal pressure we then deliver the rest of this infant's body. This is a vigorous viable male infant Apgars 9 and 9 delivery time 0807 hrs. After delivery of the the umbilical cord is doubly clamped and cut appears to be trivascular. Placenta is then manually extracted intact. Uterus is then externalized uterine incision demarcated with Moreno clamps. Uterine incision is then closed using 0 Vicryl running locked fashion 2 layers. Excellent hemostasis is noted. Excess fluid is removed from the abdomen and pelvis. Uterus, tubes, and ovaries appear normal for term gestation. Uterus placed back into the abdomen. Parietal peritoneum was then identified and closed using 0 Vicryl running fashion. Rectus muscles reapproximated in 0 Vicryl interrupted fashion. Fascial incision then closed using 0 PDS. Fascial incision is intact and hemostatic. Subcutaneous tissues and closed using a 3-0 Vicryl. Skin is and closed using annie. All counts are correct 3. There are no complications. Infant and mother are taken to the birthing suite in satisfactory condition.
[2020-12-18] MEDS: LACTATED RINGERS 1,000 ML IV SCH ×2 (08:52→14:19)
[2020-12-18] MEDS: IRON AG/C/B12/CA/SUC.ACID/STOM 1 EACH TAB PO SCH (09:54)
[2020-12-18] MEDS: SENNOSIDES-DOCUSATE SODIUM 1 EACH TAB PO SCH ×2 (09:54→19:54)
[2020-12-18] MEDS: KETOROLAC 15 MG/ML 1 ML VIAL IVP PRN (18:41)
[2020-12-19] MEDS: LACTATED RINGERS 1,000 ML IV SCH ×2 (02:43→11:58)
[2020-12-19] MEDS: KETOROLAC 15 MG/ML 1 ML VIAL IVP PRN ×2 (03:22→08:39)
[2020-12-19 06:19] LABS: Basophils % (A) 0 %; Eosinophils # (A) 0.1 k/uL (0-0.7); Eosinophils % (A) 1 %; HCT 28.2 % (34.0-46.0); HGB 8.8 gm/dL (11.4-16.0); Hypochromasia Marked; Lymphocytes # (A) 1.8 k/uL (1.0-4.8); Lymphocytes % (A) 17 %; MCH 23.4 pg (25.0-35.0); MCHC 31.3 g/dL (31.0-37.0); MCV 74.7 fL (80.0-100.0); Mean Platelet Volume 9.6; Microcytosis Slight; Monocytes # (A) 0.9 k/uL (0-1.0); Monocytes % (A) 8 %; Neutrophils # (A) 7.8 k/uL (1.3-7.7); Neutrophils % (A) 72 %; Platelet Count 195 k/uL (150-450); Poikilocytosis Slight; RBC 3.78 m/uL (3.80-5.40); RDW 15.5 % (11.5-15.5); WBC 10.8 k/uL (3.8-10.6)
--- NOTE | 2020-12-19 06:39 | P.PNOBGPC ---
Subjective - Subjective Patient reports: Reports appetite normal, Reports voiding normally, Reports pain well controlled, Reports ambulating normally : doing well Objective - Vital Signs Latest vital signs: Vital Signs Temp Pulse Resp BP Pulse Ox 12/19/20 04:00 98.3 F 67 16 110/67 96 12/19/20 00:00 98.2 F 66 16 102/63 96 12/18/20 20:00 98.4 F 72 16 92/50 96 12/18/20 16:00 98 F 88 15 101/61 98 12/18/20 12:00 98 F 84 15 112/63 97 12/18/20 10:39 98 F 82 15 108/60 99 12/18/20 10:09 85 15 107/56 99 12/18/20 09:39 97 F L 86 15 109/56 98 12/18/20 09:24 86 15 99/63 99 12/18/20 09:09 75 15 101/57 97 12/18/20 08:54 99 15 111/55 98 12/18/20 08:39 97.2 F L 84 15 104/61 98 Intake and Output 12/18/20 12/18/20 12/19/20 14:59 22:59 06:59 Intake Total 700 Output Total 750 450 200 Balance -50 -450 -200 Intake: IV 700 Output: Urine 150 450 200 Uretheral (Lamas) 400 Estimated Blood Loss 600 Other: # Voids 0 1 1 - Exam Lungs: bilateral: normal Chest: Normal S1, Normal S2 Extremities: Present: normal Abdomen: Present: normal appearance, soft. Absent: distention, tenderness Incision: Present: normal, dry, intact Uterus: Present: normal, firm - Labs Labs: Abnormal Lab Results - Last 24 Hours (Table) 12/19/20 Range/Units 05:59 WBC 10.8 H (3.8-10.6) k/uL RBC 3.78 L (3.80-5.40) m/uL Hgb 8.8 L (11.4-16.0) gm/dL Hct 28.2 L (34.0-46.0) % MCV 74.7 L (80.0-100.0) fL MCH 23.4 L (25.0-35.0) pg Neutrophils # 7.8 H (1.3-7.7) k/uL Assessment and Plan Assessment: Postoperative day #1. Patient is resting without complaints. Vital signs are stable she is afebrile. Incision is intact and dry. Uterus is firm nontender. Patient's hemoglobin today is 8.8 which is appropriate for a preoperative of 9.7. Patient is urinating without difficulty. Plan today is to continue regular diet, encourage ambulation, allow the patient to shower. Continue routine postoperative care. (1) 39 weeks gestation of Current Visit: No Status: Acute Code(s): Z3A.39 - 39 WEEKS GESTATION OF SNOMED Code(s): 88936339 (2) macrosomia Current Visit: No Status: Acute Code(s): O36.60X0 - MATERNAL CARE FOR EXCESS GROWTH, UNSP TRIMESTER, UNSP SNOMED Code(s): 43636345 (3) Rh negative status during Current Visit: No Status: Acute Code(s): O26.899 - OTH RELATED CONDITIONS, UNSPECIFIED TRIMESTER; Z67.91 - UNSPECIFIED BLOOD TYPE, RH NEGATIVE SNOMED Code(s): 006453270 (4) Previous delivery affecting Current Visit: No Status: Acute Code(s): O34.219 - MATERNAL CARE FOR UNSP TYPE SCAR FROM PREVIOUS DEL SNOMED Code(s): 343753646
--- NOTE | 2020-12-19 07:10 | P.PN ---
Progress Note - Text Progress Note Date: 12/19/20 Postoperative day 1 status post section under spinal anesthesia, and i ntrathecal morphine given for postoperative analgesia, patient doing well, there is no anesthesia related complications, Patient had no headache, vital signs stable , Assessment and plan= postop day 1 status post , doing well there is no anesthesia related complication.
[2020-12-19] MEDS: SENNOSIDES-DOCUSATE SODIUM 1 EACH TAB PO SCH ×2 (08:40→19:57)
[2020-12-19] MEDS: IRON AG/C/B12/CA/SUC.ACID/STOM 1 EACH TAB PO SCH (08:40)
[2020-12-19] MEDS: HYDROcodone/APAP 5-325MG 1 EACH TAB PO PRN ×3 (13:24→23:49)
[2020-12-19] MEDS: IBUPROFEN 600 MG TAB PO PRN ×2 (15:37→21:33)
[2020-12-20 00:04] VITALS: RESP 18
[2020-12-20] MEDS: HYDROcodone/APAP 5-325MG 1 EACH TAB PO PRN (03:57)
--- NOTE | 2020-12-20 06:25 | P.PNOBGPC ---
Subjective - Subjective Patient reports: Reports appetite normal, Reports voiding normally, Reports pain well controlled, Reports ambulating normally : doing well Objective - Vital Signs Latest vital signs: Vital Signs Temp Pulse Resp BP Pulse Ox 12/20/20 00:00 97.2 F L 86 18 98 12/19/20 16:00 97.8 F 61 16 97/59 99 12/19/20 08:00 98.3 F 78 18 98 Intake and Output 12/19/20 12/19/20 12/20/20 14:59 22:59 06:59 Other: Voiding Method Toilet # Voids 1 1 - Exam Lungs: bilateral: normal Chest: Normal S1, Normal S2 Extremities: Present: normal Abdomen: Present: normal appearance, soft. Absent: distention, tenderness Incision: Present: normal, dry, intact Uterus: Present: normal, firm Assessment and Plan Assessment: Postoperative day #2. Patient is resting without new complaints and wishes to go home. Vital signs are stable and she is afebrile. Uterus is firm nontender and she is having normal lochia. Her incision is intact and dry. My impression is a normal post operative course. Plan is to continue routine postoperative care discharge home later today (1) 39 weeks gestation of Current Visit: No Status: Acute Code(s): Z3A.39 - 39 WEEKS GESTATION OF SNOMED Code(s): 13276528 (2) macrosomia Current Visit: No Status: Acute Code(s): O36.60X0 - MATERNAL CARE FOR EXCESS GROWTH, UNSP TRIMESTER, UNSP SNOMED Code(s): 22194694 (3) Rh negative status during Current Visit: No Status: Acute Code(s): O26.899 - OTH RELATED CONDITIONS, UNSPECIFIED TRIMESTER; Z67.91 - UNSPECIFIED BLOOD TYPE, RH NEGATIVE SNOMED Code(s): 532479898 (4) Previous delivery affecting Current Visit: No Status: Acute Code(s): O34.219 - MATERNAL CARE FOR UNSP TYPE SCAR FROM PREVIOUS DEL SNOMED Code(s): 461737103
--- NOTE | 2020-12-20 06:31 | P.DS ---
Providers Date of admission: 12/18/20 05:30 Expected date of discharge: 12/20/20 Attending physician: Darren Flowers Primary care physician: Robel Clark - Discharge Diagnosis(es) (1) 39 weeks gestation of Current Visit: No Status: Acute (2) macrosomia Current Visit: No Status: Acute (3) Rh negative status during Current Visit: No Status: Acute (4) Previous delivery affecting Current Visit: No Status: Acute Hospital Course: Please see dictated H&P for intimate details of this patient's admission. Brief summary this pleasant 25-year-old 2 para 1 female 39-2/7 weeks admitted for repeat low transverse section. Patient undergoes above-named surgery for viable male infant. Of note patient does have some chronic anemia and preoperative hemoglobin was 9.7 and postoperative was 8.8. On postoperative 2 patient's felt be stable for discharge home follow up with me in 1 week. Procedures: Repeat low transverse section Patient Condition at Discharge: Good Plan - Discharge Summary Discharge Rx Participant: No New Discharge Prescriptions: New Ibuprofen [Motrin] 600 mg PO Q6HR PRN #30 tab PRN Reason: Mild Pain Or Fever >= 100.5 Iron Ag/C/B12/Ca/Suc.acid/Stom [Multigen] 1 each PO DAILY #30 tab HYDROcodone/APAP 5-325MG [[place] 5-325] 1 each PO Q4HR PRN #18 tab PRN Reason: Moderate Pain No Action Multivitamins, Thera [Multivitamin (formulary)] 1 tab PO DAILY Inhaler 2 puff INHALATION DIRECTED PRN PRN Reason: Shortness Of Breath Discharge Medication List Inhaler 2 puff INHALATION DIRECTED PRN 12/14/20 [History] Multivitamins, Thera [Multivitamin (formulary)] 1 tab PO DAILY 12/14/20 [History] HYDROcodone/APAP 5-325MG [[place] 5-325] 1 each PO Q4HR PRN #18 tab 12/20/20 [Rx] Ibuprofen [Motrin] 600 mg PO Q6HR PRN #30 tab 12/20/20 [Rx] Iron Ag/C/B12/Ca/Suc.acid/Stom [Multigen] 1 each PO DAILY #30 tab 12/20/20 [Rx] Follow up Appointment(s)/Referral(s): Darren Flowers MD [STAFF PHYSICIAN] - 1 Week Patient Instructions/Handouts: (DC) Activity/Diet/Wound Care/Special Instructions: No strenuous activities or heavy lifting for 6 weeks. No intercourse or anything per vagina for 6 weeks. Please call if any fever, chills, excessive vaginal bleeding, and/or abdominal pain Discharge Disposition: HOME SELF-CARE
[2020-12-20] MEDS: IRON AG/C/B12/CA/SUC.ACID/STOM 1 EACH TAB PO SCH (07:27)
[2020-12-20] MEDS: IBUPROFEN 600 MG TAB PO PRN (07:27)
[2020-12-20] MEDS: SENNOSIDES-DOCUSATE SODIUM 1 EACH TAB PO SCH (07:27)
[2020-12-20 09:36] VITALS: BP 117/68; PULSE 78; TEMP 97.8
== END 2020-12-20 09:42 | disposition home or self-care (01) | DRG 788 ==
LOC: 4FBP 05:30
PROVIDERS: ADMIT Obstetrics & Gynecology; ATTEND Obstetrics & Gynecology
PROC: 10D00Z1 Extraction of Products of Conception, Low, Open Approach (ICD-10-PCS; principal; 2020-12-18 08:03)
DX: O34.211 Maternal care for low transverse scar from previous cesarean delivery (principal); O36.63X0 Maternal care for excessive fetal growth, third trimester, not applicable or unspecified; O69.81X0 Labor and delivery complicated by cord around neck, without compression, not applicable or unspecified; O99.52 Diseases of the respiratory system complicating childbirth; J45.909 Unspecified asthma, uncomplicated; O99.02 Anemia complicating childbirth; O26.893 Other specified pregnancy related conditions, third trimester; D64.9 Anemia, unspecified; Z37.0 Single live birth; Z3A.39 39 weeks gestation of pregnancy; Z67.91 Unspecified blood type, Rh negative; Z87.442 Personal history of urinary calculi; Z87.891 Personal history of nicotine dependence; Z88.2 Allergy status to sulfonamides
CPT/HCPCS: 85025; 85461; 86850; 86900; 86901